=== PATIENT | female | born 1960 | race African-American/Black ===

== ENCOUNTER 2017-10-27 12:25 | Emergency (ER) | payer OTHER ==
[~2017-10-27] VITALS: Ht 160 cm; Wt 101.2 kg
[~2017-10-27 12:25] MED LIST: ADVIL200 MG PO; ASPIRIN BUFFER325 MG PO; CLINDAMYCIN HC300 MG PO; NAPROXEN500 MG PO; NORCO 7.5/321 TABLET PO; PREDNISONE20 MG PO; PROVENTIL2.5 MG/3 M IH; TRAMADOL HCL50 MG PO; VENTOLIN HFA18 GM IH; XANAX1 MG PO
[2017-10-27 13:21] LABS: HEMATOCRIT 36.5 % (36.0-46.0); MCH 33.2 PG (29.0-34.0); MCHC 32.9 G/DL (30.0-36.0); MCV 101.1 FL (83-99); PLATELET COUNT 301 K/uL (156-360); RBC DIS.WIDTH-CV 12.3 % (11.8-14.6); RBC DIS.WIDTH-SD 45.9 % (39-53); RED BLOOD COUNT 3.61 M/uL (3.80-5.20); WHITE BLOOD COUNT 9.9 K/uL (4.1-10.2)
[2017-10-27 13:30] LABS: ALBUMIN 4.6 g/dL (3.2-4.8); CHLORIDE 105 mEq/L (99-109)
[2017-10-27 13:31] LABS: POTASSIUM 4.1 mEq/L (3.7-5.4); SODIUM 142 mEq/L (136-147)
[2017-10-27 13:33] LABS: GLUCOSE 94 mg/dL (70-99); TOTAL PROTEIN 7.7 g/dL (6.4-8.3)
[2017-10-27 13:35] LABS: TOTAL BILIRUBIN 0.5 mg/dL (0.0-1.0)
[2017-10-27 13:36] LABS: ALKALINE PHOSPHATASE 109 IU/L (3-129); CREATININE 1.1 mg/dL (0.6-1.3); GFR ESTIMATE (CALCULATED) > 59 mL/min/
[2017-10-27 13:38] LABS: AST (GOT) 20 IU/L (2-34); UREA NITROGEN (BUN) 14 mg/dL (9-23)
[2017-10-27 13:39] LABS: ALT (GPT) 23 IU/L (3-49)
[2017-10-27 13:40] LABS: LIPASE 25 U/L (1.0-51.0)
[2017-10-27 16:00] LABS: APPEARANCE CLEAR ((CLEAR)); BILIRUBIN NEGATIVE; BLOOD NEGATIVE; COLOR STRAW ((YELLOW)); GLUCOSE (STRIP) NEGATIVE; KETONES NEGATIVE; LEUKOCYTES NEGATIVE; NITRITE NEGATIVE; PROTEIN (STRIP) NEGATIVE; SPECIFIC GRAVITY 1.014 (1.000-1.030); UCUL ADDED? NO; UROBILINOGEN 0.2 MG/DL (0.2-1.0)
[2017-10-27] MEDS ORDERED: PEPCID20 MG PO (16:19)
[2017-10-27] MEDS ORDERED: CARAFATE1 GM PO (16:19)
[2017-10-27] MEDS ORDERED: TRAMADOL HCL50 MG PO (16:36)
[2017-10-27 16:38] VITALS: BP 103/81
== END 2017-10-27 16:45 | disposition home or self-care (01) ==
LOC: EME 12:25
DX: R10.13 Epigastric pain (principal); R51 Headache; F17.200 Nicotine dependence, unspecified, uncomplicated; I10 Essential (primary) hypertension; J45.909 Unspecified asthma, uncomplicated; Z96.651 Presence of right artificial knee joint
CPT/HCPCS: 80053; 81003; 83690; 85027; 99281; 99284